=== PATIENT | female | born 1990 | race Caucasian/White ===

== ENCOUNTER 2018-09-19 23:19 | Emergency (ER) | payer SELFPAY ==
[2018-09-19 23:25] VITALS: BP 143/91
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
--- NOTE | 2018-09-20 08:06 | EKG REPORT ---
SEVERITY:- NORMAL ECG - SINUS RHYTHM : Confirmed by: Charles Worley MD 20-Sep-2018 08:05:55
== END 2018-09-20 01:42 | disposition left against medical advice (07) ==
LOC: ER 23:19
DX: R07.9 Chest pain, unspecified (principal); R10.9 Unspecified abdominal pain; V49.9XXA Car occupant (driver) (passenger) injured in unspecified traffic accident, initial encounter; Z53.20 Procedure and treatment not carried out because of patient's decision for unspecified reasons
CPT/HCPCS: 71046; 93005; 93010; 99281